=== PATIENT | female | born 1965 | race Hispanic/Latino ===

== ENCOUNTER 2018-04-17 14:49 | Outpatient (CLI) | payer BC ==
--- NOTE | 2018-04-22 13:10 | MMO ---
BILATERAL MAMMOGRAMS: HISTORY: Screening mammography. COMPARISON: Multiple previous outside exams, dating back to 06/23/2012. FINDINGS: Scattered fibroglandular densities. Well circumscribed, lobular, isodense mass within the lateral as pect of the left breast is stable. Intramammary lymph node in the right breast is stable. No new do minant mass or suspicious calcifications. The study was evaluated with the assistance of computer ai ded detection. IMPRESSION: BI-RADS Category 2-Benign findings. Suggest routine followup. POS: [facility]
== END 2018-04-17 14:50 | disposition home or self-care (01) ==
LOC: SCSMAMMO 14:49
PROVIDERS: ATTEND Family Medicine
DX: Z12.31 Encounter for screening mammogram for malignant neoplasm of breast (principal)
CPT/HCPCS: 77067

== ENCOUNTER 2018-12-02 16:23 | Outpatient (CLI) | payer BC ==
--- NOTE | 2018-12-02 16:39 | RAD ---
EXAM: 3 views of the left knee HISTORY: Knee pain COMPARISON: None FINDINGS: No knee effusion is seen. There is no evidence of acute fracture or dislocation. Moderate t o severe tricompartmental joint space narrowing and osteophyte formation is seen consistent with osteoarthritis. No soft tissue swelling is present. IMPRESSION: Moderate to severe left knee osteoarthritis
== END 2018-12-02 16:24 | disposition home or self-care (01) ==
LOC: BICRAD 16:23
PROVIDERS: ATTEND Family Medicine
DX: M25.562 Pain in left knee (principal); M17.12 Unilateral primary osteoarthritis, left knee

== ENCOUNTER 2020-07-03 11:43 | Outpatient (CLI) | payer BC | END 2020-07-03 11:44 | disposition home or self-care (01) | LOC: BICRAD 11:43 | PROVIDERS: ATTEND Family Medicine | DX: M25.512 Pain in left shoulder (principal); M19.012 Primary osteoarthritis, left shoulder ==

== ENCOUNTER 2020-08-08 12:48 | Outpatient (CLI) | payer BC | END 2020-08-08 12:49 | disposition home or self-care (01) | LOC: DTY/OP 12:48 | PROVIDERS: ATTEND Surgery | DX: E66.01 Morbid (severe) obesity due to excess calories (principal) | CPT/HCPCS: 97802 ==

== ENCOUNTER 2020-10-05 07:05 | Day surgery (SDC) | payer BC ==
[2020-10-04 10:44] VITALS: BMI 67.7
[2020-10-05] MEDS ORDERED: PROPOFOL 200 MG/20 ML VIAL ONE (09:07)
[2020-10-05] MEDS ORDERED: Lidocaine 1% PF 5 ML VIAL ONE (09:07)
== END 2020-10-05 10:10 | disposition home or self-care (01) ==
LOC: SDC 07:05
PROVIDERS: ATTEND Internal Medicine
PROC: 0DJD8ZZ Inspection of Lower Intestinal Tract, Via Natural or Artificial Opening Endoscopic (ICD-10-PCS; principal; 2020-10-05)
DX: Z12.11 Encounter for screening for malignant neoplasm of colon (principal); J45.909 Unspecified asthma, uncomplicated; E66.9 Obesity, unspecified; Z68.44 Body mass index [BMI] 60.0-69.9, adult
CPT/HCPCS: J2704

== ENCOUNTER 2020-10-09 09:14 | Outpatient (CLI) | payer BC ==
[2020-10-09 11:18] LABS: #Eosinphils 0.3 10x3/uL (0.0-0.5); #Monocytes 0.7 10x3/uL (0.0-1.1); #Neutrophils 5.1 10x3/uL (1.5-8.4); %Basophils 0.4 % (0.0-2.0); %Eosinophils 2.8 % (0.0-6.0); %Lymphocytes 34.1 % (18.0-47.0); %Monocytes 7.4 % (0.0-10.0); %Neutrophils 55.1 % (40.0-75.0); Hemoglobin 13.2 g/dL (12.0-15.5); Mean Corpuscular HGB CONC 31.1 g/dL (32.0-36.0); Mean Corpuscular Hemoglobin 28.9 pg (27.0-33.0); Mean Platelet Volume 11.2 fl (7.4-10.4); Platelet Count 326 10x3/uL (150-450); RBC Distribution Width 13.7 % (11.5-14.5); Red Blood Cell (RBC) Count 4.56 10x6/uL (3.90-5.03); White Blood Cell (WBC) Count 9.2 10x3/uL (3.5-10.5)
[2020-10-09 11:37] LABS: ALT (SGPT) 20 U/L (8-55); AST (SGOT) 19 U/L (5-34); Albumin 3.8 g/dL (3.5-5.0); Alkaline Phosphatase 99 U/L (40-110); Anion Gap 17 mmol/L (10-20); BUN (Urea Nitrogen) 16 mg/dL (9.8-20.1); Bilirubin, Total 0.5 mg/dL (0.2-1.2); Calc. Creatinine Clearance 0 mL/min (70-130); Calcium 9.4 mg/dL (7.8-10.44); Carbon Dioxide 22 mmol/L (22-29); Chloride 105 mmol/L (98-107); Globulin 3.7 g/dL (2.4-3.5); Glucose 105 mg/dL (70-105); Potassium 4.7 mmol/L (3.5-5.1); Protein, Total 7.5 g/dL (6.0-8.3); Sodium 139 mmol/L (136-145)
[2020-10-09 14:25] LABS: Hemoglobin A1c 5.7 % (4.0-6.0)
== END 2020-10-09 09:15 | disposition home or self-care (01) ==
LOC: LABBT 09:14
PROVIDERS: ATTEND Surgery
DX: Z01.818 Encounter for other preprocedural examination (principal); E66.01 Morbid (severe) obesity due to excess calories
CPT/HCPCS: 71046; 80053; 83036; 85025